=== PATIENT | male | born 1965 | race Caucasian/White ===

== ENCOUNTER → 2018-07-01 | Outpatient (CLI) | payer BC, OTHER ==
[~2018-07-01] VITALS: Ht 172.7 cm; Wt 87.5 kg
[~2018-07-01] MED LIST: ASPIR 8181 MG PO; BIOFLEX TABLET1 EACH PO; BYSTOLIC 5 MG5 M1 PO; CRESTOR40 MG PO; MULTIVITAMINS PO
[2018-07-01 07:30] VITALS: BP 150/77
--- NOTE | 2018-07-01 09:45 | CATHLAB ---
[facility] [place] [address] INVASIVE PROCEDURE REPORT Name: MALIK ALTMAN Room #: [facility]#: [id number] Admission: 07/01/18 Attend Phys: Ayo Mcgarry, Discharge: Date of : 67 Date of Service: 07/01/18 0945 Report #: [id number] THIS REPORT FOR: //name// APPROVED REPORT Study performed: 07/01/2018 07:28:22 Patient Details Patient Status: Out-Patient Room #: The patient is a 52 year-old male Event Personnel Ayo Mcgarry Retail Shift Supervisor, Lianna Yo CVT Monitor, Mj Geiger RN, Leah Forte Scrmichelle Procedures Performed Art Access - R femoral artery* Left Heart Cath w/or w/o Coronaries [id number] [facility] FFR 8622922 FFR Hemostasis w/ Mynx 47242 Initial Mod Sed Same Phys/QHP Gr5y 607682 07155 Mod Sed Same Phys/QHP Ea [id number] Indication Positive stress test, Chest pain Procedure Narrative The patient was brought electively to the Cardiac Catheterization Laboratory and was prepped and draped in a sterile manner. The Right Groin^ was infiltrated with 1% Lidocaine subcutaneous anesthesia. A PINNACLE 6FR Sheath #[id number] sheath was inserted into the RFA 6fr^. Coronary angiography was performed using coronary diagnostic catheters. The right coronary system was accessed and visualized with a JR 4 catheter. The left coronary system was accessed and visualized with a JL 4 catheter. The left ventricle was accessed and visualized with a Pigtail catheter. Left ventricular/Aortic Valve gradient assessed via catheter pullback. Left ventriculogram was performed in GIRARD projection. Closure device was deployed with a 6 Fr Mynx. The patient tolerated the procedure well and there were no complications associated with the procedure. There was no [facility] [email or web address] [address] INVASIVE PROCEDURE REPORT Name: MALIK ALTMAN Room #: [facility] Power#: [id number] Admission: 07/01/18 Attend Phys: Ayo Mcgarry, Discharge: Date of : 67 Date of Service: 07/01/18 0945 Report #: [id number] hematoma. Intraoperative Conscious Sedation Sedation start time: 08:08 Case end Time: 08:44 Fentanyl 50 mcg Versed 1.5 mg Fluoro Time: 3.90 minutes Dose: DAP 5893.00 cGycm2 927 mGy Contrast Type and Amount: Visipaque 135 ml Coronary Angiography The patient's coronary anatomy is right dominant. Diagnostic Cath Left Main 20-30% mid left main plaquing LAD Moderately calcified, long variable 50-75% proximal to mid LAD stenoses. FFR 0.91 75% ostial LAD stenosis Diagonal 1 95% ostial first diagonal branch stenosis. This vessel was small in caliber. Circumflex 65% ostial circumflex stenosis OM1 65% ostial OM1 stenosis. This vessel was large in caliber OM2 Mild ostial OM 2 plaquing Right Coronary The right coronary was dominant 50% proximal stenosis. 85% mid right coronary stenosis R PDA 50-60% proximal PDA stenosis Left Ventriculography The left ventricle is normal in size with normal contractility. The left ventricular ejection fraction is estimated to be 60-65%. Left ventricular wall motion abnormalities are not present. There is no mitral insufficiency. Hemodynamics The aortic pressure is 135/70 mmHg with a mean of 97 mmHg. The left ventricular pressure is 140/3 mmHg with a mean of mmHg. The left ventricular end diastolic pressure is 20 mmHg. Conclusion 1. Normal global and regional left ventricular systolic function. Ejection fraction 65% [facility] [address] [place] [address] INVASIVE PROCEDURE REPORT Name: MALIK ALTMAN [id number] Admission: 07/01/18 Attend Phys: Ayo Mcgarry, Discharge: Date of : 67 Date of Service: 07/01/1845 Report #: [id number] 2. Multivessel coronary disease Recommendations Cardiac Rehabilitation Referral Aggressive Medical Therapy CABG <ELECTRONICALLY SIGNED> By: Ayo Mcgarry MD, [facility] 07/01/1845 0945 Ayo Mcgarry MD, FACC /INF
== END | disposition home or self-care (01) ==
LOC: CATH 06:52
DX: I25.10 Atherosclerotic heart disease of native coronary artery without angina pectoris (principal); I10 Essential (primary) hypertension; E78.5 Hyperlipidemia, unspecified; Z82.49 Family history of ischemic heart disease and other diseases of the circulatory system; Z87.891 Personal history of nicotine dependence; Z98.890 Other specified postprocedural states; Z79.899 Other long term (current) drug therapy; Z79.82 Long term (current) use of aspirin

== ENCOUNTER → 2018-07-05 | Outpatient (CLI) | payer BC, OTHER | LOC: ULTRA 10:59 | DX: I25.10 Atherosclerotic heart disease of native coronary artery without angina pectoris (principal) ==

== ENCOUNTER 2018-07-12 05:21 | Inpatient (IN) | payer BC, OTHER ==
[2018-07-05 12:53] LABS: ABSOLUTE NEUTROPHILS 3.4 thou/uL (1.4-8.2); BASOPHILS 0.5 % (0.0-2.0); EOSINOPHILS 0.7 % (0.0-3.0); HEMATOCRIT 41.6 % (42.0-52.0); HEMOGLOBIN 14.7 gm/dL (14.0-18.0); MCH 32.4 pg (26.0-34.0); MCHC 35.3 g/dL (28.0-37.0); MONOCYTES 7.5 % (1.0-8.0); PLATELET COUNT 205 thou/uL (150-400); POLYS 64.3 % (36.0-66.0); RBC 4.53 mil/uL (4.50-6.00); RDW 13.9 % (10.5-14.5); WBC 5.3 thou/uL (4.0-11.0)
[2018-07-05 12:56] LABS: URINE BILIRUBIN NEGATIVE (Negative); URINE BLOOD NEGATIVE (Negative); URINE CLARITY CLEAR; URINE COLOR YELLOW; URINE GLUCOSE-RANDOM* NEGATIVE (Negative); URINE KETONES NEGATIVE (Negative); URINE LEUKOCYTES-REFLEX NEGATIVE (Negative); URINE NITRITE-REFLEX NEGATIVE (Negative); URINE PROTEIN (DIPSTICK) NEGATIVE (Negative); URINE UROBILINOGEN 0.2 E.U./dl (0.2-1.0)
[2018-07-05 13:07] LABS: ALBUMIN 4.2 g/dL (3.4-5.0); CREATININE 0.9 mg/dL (0.7-1.3); POTASSIUM 4.4 mmol/L (3.5-5.1); TOTAL BILIRUBIN 0.7 mg/dL (<0.1-1.0); TOTAL PROTEIN 7.4 g/dL (6.4-8.2)
[2018-07-05 13:08] LABS: APTT 29.3 Seconds (24.5-32.8); PROTIME 9.7 Seconds (9.3-11.4)
[2018-07-06 00:07] LABS: GLYCOHEMOGLOBIN (HGB A1C) 5.4 % (4.8-5.6)
[~2018-07-12] VITALS: Ht 172.7 cm; Wt 89.7 kg
[2018-07-12] VITALS (13 sets, daily range): BP systolic 81–130; BP diastolic 43–71
[2018-07-12 13:08] LABS: HEMATOCRIT 27.9 % (42.0-52.0); MCH 32.1 pg (26.0-34.0); MCHC 34.3 g/dL (28.0-37.0); MCV 93.4 fL (80.0-100.0); RBC 2.99 mil/uL (4.50-6.00); RDW 13.7 % (10.5-14.5); WBC 9.5 thou/uL (4.0-11.0)
[2018-07-12 13:10] LABS: HEMOGLOBIN 9.6 gm/dL (14.0-18.0)
[2018-07-12 13:23] LABS: APTT 29.1 Seconds (24.5-32.8); FIBRINOGEN 175.3 mg/dL (210-360); PROTIME 15.8 Seconds (9.3-11.4)
[2018-07-12 13:24] LABS: INR 1.5
[2018-07-12 14:14] LABS: POC BE -1 mmol/L (-2.0 to +3.0); POC CA IONIZED 4.2 mg/dL (4.5-5.3); POC GLUCOSE 203 mg/dL (70-99); POC HCO3 24.4 mmol/L (22.0-26.0); POC HEMOGLOBIN 10.9 g/dL (14.0-18.0); POC POTASSIUM 3.7 mmol/L (3.5-5.1); POC SODIUM 141 mmol/L (136-145); POC pCO2 42.2 mmHg (35.0-45.0); POC pH 7.369 (7.360-7.450)
[2018-07-12 14:14] LABS: POC BE -1 mmol/L (-2.0 to +3.0); POC CA IONIZED 4.7 mg/dL (4.5-5.3); POC GLUCOSE 130 mg/dL (70-99); POC HCO3 23.6 mmol/L (22.0-26.0); POC HEMOGLOBIN 11.2 g/dL (14.0-18.0); POC POTASSIUM 3.4 mmol/L (3.5-5.1); POC SODIUM 143 mmol/L (136-145); POC pCO2 37.1 mmHg (35.0-45.0); POC pH 7.412 (7.360-7.450)
[2018-07-12 14:14] LABS: POC BE -1 mmol/L (-2.0 to +3.0); POC CA IONIZED 4.1 mg/dL (4.5-5.3); POC GLUCOSE 206 mg/dL (70-99); POC HCO3 24.2 mmol/L (22.0-26.0); POC HEMOGLOBIN 10.9 g/dL (14.0-18.0); POC POTASSIUM 3.9 mmol/L (3.5-5.1); POC SODIUM 141 mmol/L (136-145); POC pCO2 39.8 mmHg (35.0-45.0); POC pH 7.391 (7.360-7.450)
[2018-07-12 14:14] LABS: POC BE 4 mmol/L (-2.0 to +3.0); POC CA IONIZED 4.6 mg/dL (4.5-5.3); POC GLUCOSE 108 mg/dL (70-99); POC HCO3 27.5 mmol/L (22.0-26.0); POC HEMOGLOBIN 13.3 g/dL (14.0-18.0); POC POTASSIUM 4.2 mmol/L (3.5-5.1); POC SODIUM 140 mmol/L (136-145); POC pCO2 37.9 mmHg (35.0-45.0); POC pH 7.468 (7.360-7.450)
[2018-07-12 14:14] LABS: POC BE 0 mmol/L (-2.0 to +3.0); POC CA IONIZED 4.7 mg/dL (4.5-5.3); POC GLUCOSE 164 mg/dL (70-99); POC HCO3 24.3 mmol/L (22.0-26.0); POC HEMOGLOBIN 9.5 g/dL (14.0-18.0); POC POTASSIUM 3.4 mmol/L (3.5-5.1); POC SODIUM 141 mmol/L (136-145); POC pCO2 36.8 mmHg (35.0-45.0); POC pH 7.427 (7.360-7.450)
[2018-07-12 14:14] LABS: POC BE 1 mmol/L (-2.0 to +3.0); POC CA IONIZED 4.1 mg/dL (4.5-5.3); POC GLUCOSE 196 mg/dL (70-99); POC HCO3 25.5 mmol/L (22.0-26.0); POC HEMOGLOBIN 10.5 g/dL (14.0-18.0); POC POTASSIUM 3.7 mmol/L (3.5-5.1); POC SODIUM 140 mmol/L (136-145); POC pCO2 41.1 mmHg (35.0-45.0); POC pH 7.401 (7.360-7.450)
[2018-07-12 14:14] LABS: POC BE 0 mmol/L (-2.0 to +3.0); POC CA IONIZED 4.4 mg/dL (4.5-5.3); POC GLUCOSE 142 mg/dL (70-99); POC HCO3 23.7 mmol/L (22.0-26.0); POC HEMOGLOBIN 13.3 g/dL (14.0-18.0); POC SODIUM 142 mmol/L (136-145); POC pCO2 34.1 mmHg (35.0-45.0); POC pH 7.449 (7.360-7.450)
[2018-07-12 14:14] LABS: POC BE -1 mmol/L (-2.0 to +3.0); POC GLUCOSE 192 mg/dL (70-99); POC HCO3 24.1 mmol/L (22.0-26.0); POC HEMOGLOBIN 10.9 g/dL (14.0-18.0); POC POTASSIUM 3.9 mmol/L (3.5-5.1); POC SODIUM 140 mmol/L (136-145); POC pCO2 39.1 mmHg (35.0-45.0); POC pH 7.397 (7.360-7.450)
[2018-07-12 14:40] LABS: HEMATOCRIT 34.3 % (42.0-52.0); MCH 31.9 pg (26.0-34.0); MCHC 34.2 g/dL (28.0-37.0); MCV 93.4 fL (80.0-100.0); RBC 3.67 mil/uL (4.50-6.00); RDW 13.8 % (10.5-14.5)
[2018-07-12 14:41] LABS: HEMOGLOBIN 11.7 gm/dL (14.0-18.0)
[2018-07-12 14:43] LABS: CALCIUM 8.3 mg/dL (8.5-10.1); CREATININE 0.8 mg/dL (0.7-1.3); MAGNESIUM 1.8 mg/dL (1.8-2.4); POTASSIUM 3.9 mmol/L (3.5-5.1)
[2018-07-12 14:56] LABS: APTT 28.6 Seconds (24.5-32.8); INR 1.2; PROTIME 12.3 Seconds (9.3-11.4)
[2018-07-12 15:07] LABS: BE(vivo) -3.5 mmol/L (-2 to +3); HCO3 22.4 mmol/L (22.0-26.0); PCO2 43.7 mmHg (35.0-45.0); PO2 123.7 mmHg (80.0-100.0); pH 7.327 (7.360-7.450); sO2 98.2 % (92.0-98.0)
--- NOTE | 2018-07-12 15:29 | NUR ---
PT ARRIVED FROM OR S/P CABG X 5 AT [address] FISCHER, DR ALMANZA, AND TWO ANESTHESIA NURSES. PT ARRIVED THE VENTILATOR, ON PROPOFOL GTT. RT SWAN HOOKED TO CARDIAC OUTPUT MONITOR. RT RADIAL SHY HOOKED TO MONITOR. EPICARDIAL PACER PRESENT AND OFF. MSCT AND PLEURAL CT HOOKED TO ATRIUM SUCTION -20. LEDESMA TO DD, PINK TINGED URINE. LLE GRAFT SITE WRAPPED IN CHRISTY WRAP, CATHY DRAIN WITH SANGUOINOUS DRAINAGE NOTED. AND MOTHER UPDATED AND VISITED PT
[2018-07-12 15:53] LABS: BE(vivo) -6.3 mmol/L (-2 to +3); HCO3 18.5 mmol/L (22.0-26.0); PCO2 34.6 mmHg (35.0-45.0); PO2 156.8 mmHg (80.0-100.0); pH 7.347 (7.360-7.450); sO2 98.9 % (92.0-98.0)
--- NOTE | 2018-07-12 16:00 | EKG ---
[address] [email or web address] [address] ELECTROCARDIOGRAM REPORT Name: BABSMALIK Hogan Room #: 236-P ADM IN M.R.#: [id number] Admission: 07/12/18 Attend Phys: Kian Novak MD Discharge: Date of : 67 Report #: [id number] THIS REPORT FOR: //name// [facility] Test Date: 2018-07-12 Test Time: 15:47:13 Pat Name: MALIK ALTMAN Department: Room: 236 Gender: M [employer] Specials: Panda CABELLO : 1965 Requested By: Kian Novak Order Number: [id number] MD: Linus Canseco Measurements Intervals [place] Rate: 82 P: 48 ID: 168 QRS: 62 QRSD: 76 T: 16 QT: 384 QTc: 449 Interpretive Statements Sinus rhythm Borderline low voltage, extremity leads Abnormal R-wave progression, early transition No previous ECG available for comparison Electronically Signed On 07-12-2018 16:00:31 [employer] by Linus Canseco [email or web address] <ELECTRONICALLY SIGNED> By: Linus Canseco MD 07/12/18 1600 1547 154 Linus Canseco MD /CARLITO
--- NOTE | 2018-07-12 17:09 | NUR ---
PT AWAKE BUT DROWSY. FOLLOWS COMMANDS, ANSWERING Y/N QUESTIONS. RT NOTIFIED AND CPAP TRIAL BEGAN
[2018-07-12 17:31] LABS: HCO3 17.6 mmol/L (22.0-26.0); PCO2 36.4 mmHg (35.0-45.0); pH 7.302 (7.360-7.450); sO2 98.9 % (92.0-98.0)
--- NOTE | 2018-07-12 18:34 | NUR ---
ABG RESULTS PHONED TO DR ALMANZA, ORDER TO EXTUBATE. PT EXTUBATED AT 1820, ON 5L NC, NO ISSUES
[2018-07-12 19:29] LABS: BE(vivo) -6.4 mmol/L (-2 to +3); HCO3 19.4 mmol/L (22.0-26.0); PCO2 39.8 mmHg (35.0-45.0); PO2 160.6 mmHg (80.0-100.0); sO2 98.9 % (92.0-98.0)
[2018-07-12 19:30] LABS: pH 7.306 (7.360-7.450)
[2018-07-13] VITALS (14 sets, daily range): BP systolic 96–142; BP diastolic 56–77
--- NOTE | 2018-07-13 | NUR ---
PT'S ABP HAS BEEN STABLE. WILL START AMIODARONE GTT PER ORDER.
[2018-07-13 05:28] LABS: HEMATOCRIT 30.9 % (42.0-52.0); HEMOGLOBIN 10.4 gm/dL (14.0-18.0); MCH 32.1 pg (26.0-34.0); MCHC 33.8 g/dL (28.0-37.0); MCV 94.8 fL (80.0-100.0); RBC 3.26 mil/uL (4.50-6.00); RDW 14.3 % (10.5-14.5); WBC 9.4 thou/uL (4.0-11.0)
[2018-07-13 05:40] LABS: CALCIUM 8.3 mg/dL (8.5-10.1); MAGNESIUM 1.8 mg/dL (1.8-2.4); POTASSIUM 4.5 mmol/L (3.5-5.1)
--- NOTE | 2018-07-13 06:35 | NUR ---
Pt remains stable in this shift. No s/sx of any distress indicates. Poor pulmonary toilets notes . RN assisted with IS and he able to achieved only 500 cc at his best. Pain is adequated control per IV pain med. No s/sx of any S/E indicates. CTs ,drain,swan johnny ,A-line,epicardial pacer and jakcson are inplaced and continue to function properly.He is up in chair this am. He is willam activity very well. No changes of cardiac rhythms. Continue working toward goals.
--- NOTE | 2018-07-13 08:24 | EKG ---
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 CABELLO : 1965 Requested By: Kian Novak Order Number: [id number] MD: Ayo Mcgarry Measurements Intervals [place] Rate: 78 P: 39 [place]: 169 QRS: 26 QRSD: 74 T: 12 QT: 376 QTc: 429 Interpretive Statements Sinus rhythm Diffuse ST elevation, consider postoperative pericarditis Baseline wander in lead(s) V5 Compared to ECG 07/12/2018 15:47:13 ST segment abnormality is more prominent Electronically Signed On 07-13-2018 8:24:12 WELLNESS CONSULTANT by Ayo Mcgarry [email or web address] <ELECTRONICALLY SIGNED> By: Ayo Mcgarry MD, [facility] 07/13/18 0824 30 30 Ayo Mcgarry MD, [facility] /EPI
--- NOTE | 2018-07-13 08:41 | EKG ---
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: GR : 1965 Requested By: Kian Novak Order Number: [id number] MD: Ayo Mcgarry Measurements Intervals [place] Rate: 66 P: 136 [place]: 143 QRS: 161 QRSD: 80 T: 183 QT: 394 QTc: 413 Interpretive Statements Incorrect lead placement, recommend repeat tracing Sinus rhythm Compared to ECG 07/12/2018 15:47:13 incorrect lead placement is now present Electronically Signed On 07-13-2018 8:41:27 STRAP BUCKLER MACHINE by Ayo Mcgarry [email or web address] <ELECTRONICALLY SIGNED> By: Ayo Mcgarry MD, [facility] 07/13/18 0841 4 4 Ayo Mcgarry MD, FACC /EPI
--- NOTE | 2018-07-13 08:50 | HC ---
[facility] [place] [address] CONSULTATION Name: MALIK ALTMAN Stefanie Room #: 236-P [facility] IN M.R.#: [id number] Admission: 07/12/18 Attend Phys: Kian Novak MD Discharge: Date of : 67 Report #: [id number] THIS REPORT FOR: //name// CC: FAM unknown Kian Novak DATE OF SERVICE: 07/12/2018 REASON FOR CONSULTATION: Coronary artery disease. HISTORY OF PRESENT ILLNESS: The patient is a 52-year-old gentleman with a history of recently identified coronary artery disease. In mid 2018, a cardioscan demonstrated a total calcium burden of 1351 Agatston units. This led to an outpatient stress study, which demonstrated normal left ventricular systolic function and high risk ischemic features. He denies chest heaviness or pressure, although has mild exertional breathlessness. Coronary angiography demonstrated multivessel coronary artery disease and he is now being admitted for surgical revascularization. There have been no heart failure symptoms including orthopnea, paroxysmal nocturnal dyspnea or lower extremity edema. No history of palpitations, near syncope or syncope. ALLERGIES: No known drug allergies. MEDICATIONS: Bystolic 5mg, Rosuvastatin 40 mg daily, aspirin 81 mg daily. PAST MEDICAL HISTORY: Medical records have been reviewed. No significant illnesses or hospitalizations. SOCIAL HISTORY: He is a former smoker, quit in 1995. FAMILY HISTORY: Multiple family members have premature coronary artery disease. REVIEW OF SYSTEMS: All systems negative except as that noted above. PHYSICAL EXAMINATION: GENERAL: He is a pleasant gentleman, in no distress. VITAL SIGNS: Blood pressure is 130/70, heart rate is 70 and regular, respirations unlabored at 18. HEENT: There are neither xanthelasma, subcutaneous xanthomata, oral mucosal or digital cyanosis or kyphoscoliosis present. CHEST: Clear to auscultation and percussion. CARDIOVASCULAR: Regular rate and rhythm with normal S1, S2. No murmurs or rubs. ABDOMEN: Soft and nontender. EXTREMITIES: Without cyanosis, clubbing or edema. Radial pulses are 2+. NEUROLOGIC: He is alert with a nonfocal exam. [facility] [address] [place] [address] CONSULTATION Name: ANUPAMAMALIK Stefanie Room #: 236-P [facility] IN M.R.#: [id number] Admission: 07/12/18 Attend Phys: Kian Novak MD Discharge: Date of : 67 Report #: [id number] LABORATORY DATA: Sodium 143, potassium 4.4, creatinine 0.9. Hemoglobin 14.7, hematocrit 41.6, white count 5.3 thousand, platelet count 205. IMPRESSION: 1. Multivessel coronary artery disease with normal left ventricular systolic function. 2. Dyslipidemia. 3. Hypertension. RECOMMENDATIONS: 1. Surgical revascularization. 2. Continued efforts towards aggressive risk factor modification. I will follow along with you in the perioperative setting. Thank you for asking me to participate in the patient's care. <ELECTRONICALLY SIGNED> By: Ayo Mcgarry MD, [facility] 07/13/18 0850 0839 1723 Ayo Mcgarry MD, [facility] /nt
--- NOTE | 2018-07-13 09:09 | NUR ---
Nutrition: Received consult post CABG. Will followup when out of ICU and closer to D/C to address any education needs.
--- NOTE | 2018-07-13 14:03 | NUR ---
CM ASSESSMENT: CASE OPENED FOR DC PLANNING. CLINICAL INFO REVIEWED AND MET WITH PT WHO IS POD #1 CABG. 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 NO PREVIOUS DME OR HH. LIKELY HOME NO NEEDS WHEN MEDICALLY STABLE. CM AVAILABLE TO COORDINATE ANY DC NEEDS.
--- NOTE | 2018-07-13 20:56 | NUR ---
PT AOX4. ON RA ON ARRIVAL. DENIES PAIN. DENIES SOA AT REST. EDUCATED ABOUT IS USAGE. PT BLADDER SCANNED D/T NO URINE OUTPUT SINCE REMOVAL OF LEDESMA AT 1300. 506 ON BLADDER SCAN. PT ENCOURAGE TO VOID, 200 CC FROM VOID. RIGHT RADIAL ART LINE D/C PER DR. VILLANUEVA'S ORDERS. MEDS AND PLEURAL CHEST TUBE IN PLACE, AND DRAINING. STERNAL DRESSINGS AND LEFT LEG DRESSINGS IN PLACE. CATHY DRAINING. NO COMPLAINS CURRENTLY WILL CONTINUE TO MONITOR PT.
[2018-07-14] VITALS (16 sets, daily range): BP systolic 100–135; BP diastolic 55–77
--- NOTE | 2018-07-14 05:21 | NUR ---
PT AOX4. RA. NO SIGNS OF RESP DISTRESS AT REST. MEDICATED FOR PAIN DURING THE NIGHT. PLEURAL AND MEDS CHEST TUBES IN PLACE, OUTPUT NOTED. PACEMAKER WIRES IN PLACE. EDUCATED ABOUT PAIN MANAGEMENT AND DEEP BREATHING DURING THE NIGHT. VSS. LOW GRADE TEMP DURING THE NIGHT. NO COMPLAINS PRESENTLY. WILL CONTINUE TO MONITOR.
[2018-07-15 00:15] VITALS: BP 127/55
[2018-07-15 04:30] VITALS: BP 115/53
--- NOTE | 2018-07-15 05:58 | NUR ---
ASSUME CARE 1900. PT/VITALS STABLE. INTERMITTENT INCISIONAL PAIN. TOLERATES ACTIVITY WELL. \ASSESSMENT CHARTED. PLEURAL CHEST TUBE IN PLACE. SEROUSANG DRAIANGE NOTED. LEFT LEG CATHY DRAIN NOTED WITH SANGUINOUS DRAINAGE. ALL DRESSINGS CDI. PT IS PROGRESSING WELL WITH POC. PLAN IS TO CONTINUE TO MONITOR POST UP RECOVERY, PREVENT INFECTION AND WORK TOWARDS DISCHARGE WITHIN A FEW DAYS. WILL CONTINUE TO MONITOR AND FOLLOW WITH POC
--- NOTE | 2018-07-15 07:59 | O ---
[facility] [place] [address] OPERATIVE REPORT Name: MALIK ALTMAN Stefanie Room #: 209-P [facility] IN M.R.#: [id number] Admission: 07/12/18 Attend Phys: Burak Bates MD Discharge: Date of : 67 Report #: [id number] THIS REPORT FOR: //name// CC: Ayo Mcgarry MD [facility] FAM unknown Kian Novak DATE OF SERVICE: 07/12/2018 PREOPERATIVE DIAGNOSIS: Coronary artery disease. POSTOPERATIVE DIAGNOSIS: Coronary artery disease. OPERATION: Coronary artery bypass x 5 including left internal mammary artery to left anterior descending artery, saphenous vein to diagonal, ramus, and marginal arteries and saphenous vein to posterior descending artery and endoscopic and open harvest, left greater saphenous vein. SURGEON: Kian Novak M.D. FLAME GOUGER: DORENE Brown. ANESTHESIA: General. INDICATION: The patient is a 52-year-old seen for Dr. Mcgarry. The patient has a strong positive family history and a positive stress test and a high calcium score. This led to cardiac catheterization that showed severe 3-vessel coronary artery disease including left main stenosis. FINDINGS AND TECHNIQUE: After general anesthesia was established, saphenous vein was harvested and prepared for use as a conduit. Exposure was obtained through a median sternotomy. Left internal mammary artery was harvested. Pericardial well was made. Cannulation sutures were placed. Heparin was given. Aorta was cannulated. Right atrium was cannulated. Cardioplegia needle was positioned in the aortic root. Retrograde cardioplegic catheter was placed in the coronary sinus. Cardiopulmonary bypass was established. Aorta was crossclamped. Antegrade and retrograde cardioplegia were given. Ice was poured into the pericardial well. The heart was stopped. During electromechanical arrest, the distal anastomoses were performed and end-to-side anastomosis was made between vein and the posterior descending artery. Cold cardioplegia was given. A separate segment of vein was sewn in end-to-side fashion to the large distal marginal artery. Cold cardioplegia was given. The same segment of vein was sewn in [id number] fashion to the intermediate size ramus intermedius. Cold cardioplegia was given. The same segment of vein was sewn in [id number]-yx-fwhr fashion to the diagonal artery. [facility] [address] [place] [address] OPERATIVE REPORT Name: MALIK ALTMAN Stefanie Room #: 209-P [facility] IN [facility]#: [id number] Admission: 07/12/18 Attend Phys: Burak Bates MD Discharge: Date of : 67 Report #: [id number] cardioplegia was given. Left internal mammary artery was sewn in end-to-side fashion to the left anterior descending artery. This was done relatively distally due to diffuse disease. The anastomosis was checked and found to be satisfactory using the temperature technique. Cold cardioplegia was given. Two proximal anastomoses were performed. When these were complete, warm retrograde cardioplegia was given followed by warm continuous blood to the coronary sinus. When this infusion was complete, the crossclamp was removed. De-airing maneuvers were performed. The anastomoses were inspected and found to be satisfactory. As the patient warmed, nice cardiac activity resumed, chest tubes and pacing wires were placed, a marker was placed around the proximal anastomoses. When the patient was warm, he was weaned from cardiopulmonary bypass. Venous cannula was removed. Protamine was given, the aortic cannula was removed. Flows were measured in the bypass grafts. When hemostasis was satisfactory, chest was irrigated with antibiotic solution and closed in the usual fashion. The patient was taken to the Intensive Care Unit in good condition having tolerated the procedure well. All counts were reported as correct. <ELECTRONICALLY SIGNED> By: Kian Novak MD 07/15/18 0759 1622 1633 Kian Novak MD /nt
[2018-07-15 08:05] VITALS: BP 114/53
[2018-07-15 12:20] VITALS: BP 121/49
[2018-07-15 16:10] VITALS: BP 114/61
[2018-07-15 19:59] VITALS: BP 111/64
[2018-07-16 05:18] VITALS: BP 111/63
--- NOTE | 2018-07-16 06:18 | NUR ---
PT. AOX4 AT SHIFT CHANGE; C/O PAIN; PRN PAIN MEDICATION GIVEN X 1 TAB; RE-ASSESSMENT; SLEEPING; [facility] PILL HELPED DECREASED PAIN; NO BM SINCE THURSDAY; PLUM JUICE GIVEN; PASSING GAS; WALKED AROUND THE UNIT AROUND 3AM; NO C/O DIZZINESS OR WEAKNESS; TRIED TO HAVE A BM; NO SUCCESS; ADVICED NOT TO BEAR DOWN; DRESSING OVER L. LEG CHANGE; ABLE TO REST FOR A FEW HOURS; SAT OVER CHAIR; ASSESSMENT CHARGED; FOLLOWING POC. WILL PASS ON REPORT.
[2018-07-16 08:15] VITALS: BP 124/51
[2018-07-16] MEDS ORDERED: PACERONE 200 M200 M1 PO (12:23)
[2018-07-16] MEDS ORDERED: HYDROCODONE-AP1 EAC6 PO (12:24)
[2018-07-16 12:27] VITALS: BP 124/51
[2018-07-16 13:18] VITALS: BP 124/51
== END 2018-07-16 13:18 | disposition home or self-care (01) | DRG 236 ==
LOC: PRE 05:21 → TBA 05:21 → PRE 05:38 → ICU 14:16 → 2N 14:16 → ICU 14:17 → PRE 14:57 → 2N 07-14 15:34 → ENTRNSPT 07-16 12:55 → 2N 07-16 13:18
PROVIDERS: ADMIT Surgery Vascular Surgery
PROC: 5A1221Z Performance of Cardiac Output, Continuous (ICD-10-PCS; principal; 2018-07-13)
PROC: 06BQ0ZZ Excision of Left Saphenous Vein, Open Approach (ICD-10-PCS; principal; 2018-07-13)
PROC: 02100Z9 Bypass Coronary Artery, One Artery from Left Internal Mammary, Open Approach (ICD-10-PCS; principal; 2018-07-13)
PROC: 021309W Bypass Coronary Artery, Four or More Arteries from Aorta with Autologous Venous Tissue, Open Approach (ICD-10-PCS; principal; 2018-07-13)
DX: I25.10 Atherosclerotic heart disease of native coronary artery without angina pectoris (principal); E78.5 Hyperlipidemia, unspecified; I10 Essential (primary) hypertension; Z87.891 Personal history of nicotine dependence; Z79.82 Long term (current) use of aspirin; Z79.899 Other long term (current) drug therapy; Z82.49 Family history of ischemic heart disease and other diseases of the circulatory system
CPT/HCPCS: 10078; 10081; 10204; 47000; 47001; 47002; 47297; 50010; 50249; 50409; 50456; 50498; 50668; 51301; 52131; 52259; 52314; 53327; 53358; 54118; 56524; 56525; 56526; 56527; 56528; 56531; 56534; 56639; 56668; 56760; 56898; 57093; 62950; 65003; 65020; 65047; 65090; 65120; 65130; 65135; 83006

== ENCOUNTER → 2019-12-01 | Outpatient (CLI) | payer BC, OTHER ==
[~2019-12-01] MED LIST changes: +HYDROCODONE-AP1 EAC6 PO; +PACERONE 200 M200 M1 PO
== END ==
LOC: SJCVCIMAG 09:55
PROVIDERS: ATTEND Internal Medicine
DX: I65.23 Occlusion and stenosis of bilateral carotid arteries (principal); I25.10 Atherosclerotic heart disease of native coronary artery without angina pectoris; I10 Essential (primary) hypertension; E78.5 Hyperlipidemia, unspecified; Z95.1 Presence of aortocoronary bypass graft

== ENCOUNTER → 2021-06-14 | Outpatient (CLI) | payer BC, OTHER | LOC: SJCVCIMAG 08:19 | PROVIDERS: ATTEND Internal Medicine | DX: I25.10 Atherosclerotic heart disease of native coronary artery without angina pectoris (principal); E78.5 Hyperlipidemia, unspecified; Z95.1 Presence of aortocoronary bypass graft ==